=== PATIENT | female | born 1950 | race Caucasian/White ===

== ENCOUNTER 2022-09-28 00:47 | Outpatient (CLI) | payer MEDICARE, OTHER | END 2022-09-28 23:59 | disposition critical access hospital (66) | LOC: EMS 00:47 | DX: R10.12 Left upper quadrant pain (principal); R19.7 Diarrhea, unspecified; R11.0 Nausea; R00.1 Bradycardia, unspecified; I95.9 Hypotension, unspecified | CPT/HCPCS: A0425; A0427 ==

== ENCOUNTER 2022-09-28 01:11 | Emergency (ER) | payer MEDICARE, OTHER ==
[2022-09-28] MEDS ORDERED: ONDANSETRON 4 MG/2 ML VIAL IVP STA (01:25)
[2022-09-28] MEDS ORDERED: SODIUM CHLORIDE 0.9% 1,000 ML IV STA (01:25)
[2022-09-28] MEDS ORDERED: MORPHINE 2 MG/ML CARPUJECT IVP STA (01:25)
--- NOTE | 2022-09-28 01:32 | ED Physician Documentation ---
PD HPI ABD PAIN - Stated complaint Stated Complaint: ABD PAIN, DIARRHEA, NAUSEA - Chief complaint Chief Complaint: Abd Pain - History obtained from History obtained from: Patient - Additional information Additional information: Patient is a 72-year-old presenting for evaluation of diarrhea for the past 2 days and development of upper abdominal pain starting a few hours ago that feels like a pressure sensation. She reports having loose stools for the past 2 days that are primarily with liquidy with no blood in it. This evening she started having a sharp pain in the upper abdomen that feels like a pressure sensation that also radiates to the chest. She feels nauseous. She denies vomiting. She reports having a prior appendectomy and cholecystectomy. She reports having history of Crohn's.She denies any known sick contacts. She did eat a sandwich from a grocery store 2 days ago. She denies recent antibiotic use. Review of Systems Constitutional: denies: Fever Cardiac: reports: Chest pain / pressure Respiratory: denies: Dyspnea GI: reports: Abdominal Pain, Nausea, Diarrhea. denies: Bloody / black stool : denies: Dysuria Musculoskeletal: denies: Back pain Neurologic: denies: Headache PD PAST MEDICAL HISTORY - Present Medications Home Medications: Ambulatory Orders Medication Instructions Recorded Confirmed Ondansetron Odt [Zofran] 4 mg TL Q6H PRN #10 tablet 09/28/22 Oxycodone HCl/Acetaminophen 1 each PO Q6H PRN #10 tablet 09/28/22 [Percocet 5-325 mg Tablet] - Allergies Allergies/Adverse Reactions: Allergies Allergy/AdvReac Type Severity Reaction Status Date / Time Penicillins Allergy Unknown Unknown Verified 09/28/22 01:20 PD ED PE NORMAL - General General: Alert and oriented X 3, No acute distress, Well developed/nourished - HEENT HEENT: Atraumatic - Neck Neck: Supple, no meningeal sign - Cardiac Cardiac: RRR, No murmur - Respiratory Respiratory: No respiratory distress, Clear bilaterally - Abdomen Abdomen: Soft, Non distended, Other (Mid abdominal tenderness to palpation, no mass, no rebound, no guarding). No: Normal bowel sounds (Hyperactive bowel sounds), Non tender - Derm Derm: Warm and dry - Neuro Neuro: Normal speech Results - Vitals Vitals: Vital Signs - 24 hr 09/28/22 09/28/22 09/28/22 01:17 01:19 03:19 Temperature 36.2 C L Heart Rate 79 80 80 Respiratory 16 12 16 Rate Blood Pressure 114/57 L 110/57 L 119/60 O2 Saturation 97 98 98 09/28/22 03:48 Temperature Heart Rate 68 Respiratory 18 Rate Blood Pressure 120/62 O2 Saturation 99 Oxygen O2 Source Room air - EKG (time done) 0124 EKG releavant findings:: EKG personally interpreted by author of this note. Relevant findings are: Rate 79, normal sinus rhythm, no STEMI, QTc 422 Rate: Rate (enter#) (79) Rhythm: NSR Intervals: No: Prolonged QT Ischemia: No: ST elevation c/w ischemia - Labs Labs: Laboratory Tests 09/28/22 09/28/22 09/28/22 01:23 01:23 01:23 WBC 6.8 RBC 4.42 Hgb 13.0 Hct 40.8 MCV 92.3 MCH 29.4 MCHC 31.9 L RDW 12.3 Plt Count 205 MPV 9.0 Neut # (Auto) 5.7 Lymph # (Auto) 0.5 L Toole # (Auto) 0.5 Eos # (Auto) 0.1 Baso # (Auto) 0.0 Absolute Nucleated RBC 0.00 Nucleated RBC % 0.0 Sodium 138 Potassium 3.8 Chloride 105 Carbon Dioxide 26 Anion Gap 7.0 BUN 14 Creatinine 0.8 Estimated GFR (MDRD) 70 L Glucose 109 H Calcium 7.9 L Total Bilirubin 0.5 AST 33 ALT 27 Alkaline Phosphatase 56 Troponin I High Sens 3.8 Total Protein 6.3 L Albumin 3.3 Globulin 3.0 Albumin/Globulin Ratio 1.1 Lipase 74 H PD Medical Decision Making - ED course Complexity details: reviewed results, re-evaluated patient, d/w patient, d/w family ED course: Patient is a 72-year-old presenting for evaluation of recent diarrhea and tonight developing vomiting and abdominal pain. Pain does radiate into the chest. Her EKG is reassuring without signs of acute ischemia. Labs were obtained including a CBC, chemistry, troponin.Labs are without significant findings including negative high-sensitivity troponin in setting of atypical presentation that I do not feel is consistent with ACS.She does have abdominal tenderness on exam. A CT scan of the abdomen and pelvis was obtained which demonstrates enteritis. Her chest x-ray which I reviewed is negative for consolidation or effusion. She is feeling better here.Her vital signs also have been stable. Overall her abdominal exam is benign.She does report having some continued episodes of pain at that come in waves. Discussed continued supportive care which will include antinausea medication and a small amount of pain medication. Patient is counseled on strict return precautions. Departure - Departure Disposition: 01 Home, Self Care Clinical Impression: Abdominal pain, Nausea, vomiting and diarrhea Condition: Stable Instructions: ED Abdominal Pain Female Non-Specific Abdominal Pain, ED Diet Vomiting Diarrhea, ED Food Poison Or Gastroenteritis Prescriptions: Oxycodone HCl/Acetaminophen [Percocet 5-325 mg Tablet] 1 each PO Q6H PRN #10 tablet PRN Reason: pain Ondansetron Odt [Zofran] 4 mg TL Q6H PRN #10 tablet PRN Reason: Nausea / Vomiting Comments: Your labs are reassuring including markers that look at your heart. Your CT scan shows enteritis Which is inflammation through your intestinal tract. This is likely from a viral illness. It is a good sign that your diarrhea has slowed down. I am also hopeful that your pain and nausea will also improve quickly over the next day. I have sent you home with medication to help with both of the symptoms and also sent prescriptions to [facility] in [place]. I am prescribing a short course of narcotic pain medication for you. These are potentially dangerous and addictive medications that should be used carefully. These medications may constipate you. Take an bwvc-zsl-[id number] stool softener (docusate) twice daily with plenty of water while taking these medications. If you go 24 hours without a bowel movement, take [id number] miralax, per package instructions. Do not drink or drive while taking these medications. If you received narcotic or sedating medications while in the emergency department, do not drive for 24 hours. Store this medication in a safe, secure place and out of reach of children. It is a violation of federal law to give or sell this medication to another person or to use in a manner other than prescribed. The ED will not refill narcotic prescriptions, including prescriptions lost or stolen. To dispose of unwanted medications: 1. [facility] at [address] in [place] has a medication drop box. They accept prescription medications (in pill form) Friday through Friday 9:00 a.m. to 5:00 p.m. 2. The [facility] [employer] accepts prescription medications (in pill form only) for disposal year round. Call for more information. 3. Contact the [facility] for the next [facility] sponsored prescription drug collection event. , [phone], or [phone]; Note that many narcotic pain relievers also contain Tylenol/acetaminophen. Please ensure that your total dose of acetaminophen from all sources does not exceed 3 g (3000 mg) per day. Return to the ER if you develop any worsening symptoms. Discharge Date/Time: 09/28/22 03:49
[2022-09-28 01:38] LABS: BASOPHILS % (AUTO) 0.1 %; EOSINOPHILS # (AUTO) 0.1 10^3/uL (0.0-0.7); EOSINOPHILS % (AUTO) 1.6 %; HCT - HEMATOCRIT 40.8 % (37.0-47.0); LYMPHOCYTES # (AUTO) 0.5 10^3/uL (1.5-3.5); LYMPHOCYTES % (AUTO) 6.7 %; MEAN CORPUSCULAR HEMOGLOBIN 29.4 pg (27.0-31.0); MEAN CORPUSCULAR HGB CONC 31.9 g/dL (32.0-36.0); MEAN CORPUSCULAR VOLUME 92.3 fL (81.0-99.0); MONOCYTES # (AUTO) 0.5 10^3/uL (0.0-1.0); MONOCYTES % (AUTO) 7.6 %; NEUTROPHILS # (AUTO) 5.7 10^3/uL (1.5-6.6); NEUTROPHILS % (AUTO) 83.9 %; PLT - PLATELET COUNT 205 10^3/uL (130-450); RED BLOOD COUNT 4.42 10^6/uL (4.20-5.40); RED CELL DISTRIBUTION WIDTH 12.3 % (12.0-15.0); WHITE BLOOD COUNT 6.8 x10^3/uL (4.8-10.8)
[2022-09-28 01:50] LABS: ALBUMIN 3.3 g/dL (3.2-5.5); ALBUMIN/GLOBULIN RATIO 1.1 (1.0-2.2); BILIRUBIN,TOTAL 0.5 mg/dL (0.2-1.0); CALCIUM 7.9 mg/dL (8.5-10.3); CREATININE 0.8 mg/dL (0.4-1.0); POTASSIUM 3.8 mmol/L (3.5-5.0); TOTAL PROTEIN 6.3 g/dL (6.7-8.2)
[2022-09-28] MEDS ORDERED: iohexoL-300 100 ML VIAL ONE (02:28)
[2022-09-28] MEDS ORDERED: iohexoL-300 100 ML VIAL IVP ONE (03:16)
[2022-09-28] MEDS ORDERED: ONDANSETRON ODT 4 MG Prepack 2 TL PRN (03:31)
[2022-09-28] MEDS ORDERED: oxyCODONE/ACET 5/325 Prepack 4 PO STA (03:31)
[2022-09-28 03:49] VITALS: BP 120/62
--- NOTE | 2022-09-28 07:06 | XRAY Report ---
PROCEDURE: Chest 1 View X-Ray INDICATIONS: CP TECHNIQUE: One view of the chest was acquired. COMPARISON: None. FINDINGS: Surgical changes and devices: None. Lungs and pleura: No pleural effusions or pneumothorax. Lungs are clear. Mediastinum: Mediastinal contours appear normal. Heart size is normal. Bones and chest wall: No suspicious bony lesions. Overlying soft tissues appear unremarkable. IMPRESSION: No acute cardiopulmonary process. Findings are concordant with preliminary interpretation provided by [facility]. Reviewed by: Junior Kamara MD on 09/28/2022 7:05 AM PDT Approved by: Junior Kamara MD on 09/28/2022 7:05 AM PDT Station ID: [id number]
--- NOTE | 2022-09-28 07:48 | CT Report ---
PROCEDURE: ABDOMEN/PELVIS W INDICATIONS: periumbilical and upper abd pain CONTRAST: 100 ML OMNI 300 TECHNIQUE: After the administration of IV contrast, 5 mm thick sections acquired from the diaphragms to the symp hysis. 5 mm thick coronal and sagittal reformats were acquired. For radiation dose reduction, the f ollowing was used: automated exposure control, adjustment of mA and/or kV according to patient size. COMPARISON: None FINDINGS: Image quality: Excellent. Lung bases and heart: Dependent atelectasis in posterior aspect of bilateral lung bases are seen. Hea rt size is normal, no pericardial effusion. Liver: Unremarkable. Gallbladder and biliary tree: There is prior cholecystectomy. Prominence of common bile that measures up to 1.1 cm in diameter is seen. No intraluminal filling defect is noted. Spleen: Unremarkable. Pancreas: Unremarkable. Adrenals: Unremarkable. Kidneys and ureters: Unremarkable. Bowel and peritoneum: There is no bowel obstruction. No abnormal bowel wall thickening. Mildly promin ent fluid containing distal small bowel loops and proximal colon loop is seen in right lower quadrant . Appendix is not visualized. No bowel wall thickening or mesenteric fat stranding is seen in right l ower quadrant abdomen. Sigmoid diverticulosis is seen without colonic wall thickening or mesenteric f at stranding. No abscess collection. No free fluid of free air. Lymph nodes: No central or retroperitoneal adenopathy. Vessels: Unremarkable. PELVIS Reproductive organs: Unremarkable. Bladder: Unremarkable. Lymph nodes: Unremarkable. Bones: No aggressive osseous abnormality. Other: Bilateral inguinal hernia is seen. Left inguinal hernia containing fat only. Right middle melquiades ia containing fat and a short segment of small bowel loop. IMPRESSION: 1. Finding may represent enterocolitis involving terminal ileum/ascending colon. No bowel obstruction . No abscess collection. No free fluid of free air. 2. Sigmoid diverticulosis without evidence of acute diverticulitis. 3. Prior cholecystectomy. Prominent common bile that measures up to 1.1 cm in diameter. No intralumin al filling defect is seen. Clinical correlation and follow-up is recommended. 4. Bilateral inguinal hernia as above. No significant discrepancies from preliminary readings. Reviewed by: Junior Kamara MD on 09/28/2022 7:46 AM PDT Approved by: Junior Kamara MD on 09/28/2022 7:46 AM PDT Station ID: [id number]
== END 2022-09-28 03:49 | disposition home or self-care (01) ==
LOC: EDUNIT# → ED 01:11
DX: R10.10 Upper abdominal pain, unspecified (principal); R11.2 Nausea with vomiting, unspecified; R19.7 Diarrhea, unspecified
CPT/HCPCS: 36415; 71045; 74177; 80053; 83690; 84484; 85025; 93005; 96374; 99284; Q9967